=== PATIENT | male | born 1955 | race Caucasian/White ===

== ENCOUNTER 2017-10-26 16:02 | Inpatient (IN) | payer MEDICARE, MEDICAID ==
[2017-10-26 17:53] LABS: #Eosinphils 0.3 thou/uL (0.0-0.7); #Lymphocytes 0.9 thou/uL (1.20-3.40); #Monocytes 0.5 thou/uL (0.11-0.59); #Neutrophils 6.9 thou/uL (1.40-6.50); %Basophils 0.4 % (0.0-1.0); %Lymphocytes 10.2 % (21.0-51.0); %Monocytes 5.6 % (0.0-10.0); %Neutrophils 80.7 % (42.0-75.0); Hemoglobin 9.5 g/dL (14.0-18.0); Mean Corpuscular HGB CONC 32.1 g/dL (32.0-36.0); Mean Corpuscular Hemoglobin 32.4 pg (27.0-31.0); Mean Platelet Volume 7.3 fL (7.4-10.4); Platelet Count 216 thou/uL (130-400); RBC Distribution Width 16.1 % (11.5-14.5); Red Blood Cell (RBC) Count 2.93 mill/uL (4.70-6.10); White Blood Cell (WBC) Count 8.6 thou/uL (4.8-10.8)
[2017-10-26 18:17] LABS: ALT (SGPT) 9 U/L (8-55); AST (SGOT) 15 U/L (5-34); Albumin 2.9 g/dL (3.4-4.8); Alkaline Phosphatase 97 U/L (40-150); Anion Gap 11 mmol/L (10-20); BUN (Urea Nitrogen) 32 mg/dL (8.4-25.7); Bilirubin, Total 0.3 mg/dL (0.2-1.2); CRP (Inflammatory) 4.14 mg/dL (= or < 0.5); Calc. Creatinine Clearance 0 mL/min (70-130); Calcium 8.5 mg/dL (7.8-10.44); Carbon Dioxide 25 mmol/L (23-31); Chloride 105 mmol/L (98-107); Estimated GFR-MDRD 50; Globulin 4.3 g/dL (2.4-3.5); Glucose 92 mg/dL (80-115); Potassium 4.6 mmol/L (3.5-5.1); Protein, Total 7.2 g/dL (5.8-8.1); Sodium 136 mmol/L (136-145)
[2017-10-26 19:32] VITALS: BMI 19.0
[2017-10-26] MEDS ORDERED: Diphenoxylate HCl/Atropine Tablet PO PRN (21:41)
[2017-10-26] MEDS ORDERED: Albuterol Sulfate 2.5 mg/3 ml Neb NEB PRN (21:41)
[2017-10-27 05:32] LABS: Anion Gap 10 mmol/L (10-20); BUN (Urea Nitrogen) 28 mg/dL (8.4-25.7); Calc. Creatinine Clearance 36 mL/min (70-130); Calcium 8.3 mg/dL (7.8-10.44); Carbon Dioxide 25 mmol/L (23-31); Chloride 105 mmol/L (98-107); Estimated GFR-MDRD 52; Glucose 74 mg/dL (80-115); Potassium 4.3 mmol/L (3.5-5.1); Sodium 136 mmol/L (136-145)
[2017-10-27] MEDS: Cholestyramine/Aspartame 4 gm Packet PO SCH ×2 (05:34→16:41)
[2017-10-27 05:44] LABS: #Basophils 0.1 thou/uL (0.0-0.2); #Eosinphils 0.2 thou/uL (0.0-0.7); #Lymphocytes 1.2 thou/uL (1.20-3.40); #Monocytes 0.5 thou/uL (0.11-0.59); #Neutrophils 3.4 thou/uL (1.40-6.50); %Basophils 1.3 % (0.0-1.0); %Eosinophils 3.5 % (0.0-10.0); %Lymphocytes 22.4 % (21.0-51.0); %Monocytes 9.3 % (0.0-10.0); %Neutrophils 63.5 % (42.0-75.0); Hemoglobin 9.2 g/dL (14.0-18.0); Mean Corpuscular HGB CONC 30.6 g/dL (32.0-36.0); Mean Corpuscular Hemoglobin 31.4 pg (27.0-31.0); Mean Platelet Volume 9.3 fL (7.4-10.4); Platelet Count 127 thou/uL (130-400); RBC Distribution Width 16.6 % (11.5-14.5); Red Blood Cell (RBC) Count 2.94 mill/uL (4.70-6.10); White Blood Cell (WBC) Count 5.4 thou/uL (4.8-10.8)
[2017-10-27] MEDS ORDERED: Levothyroxine Sodium 125 MCG TAB PO SCH (06:00)
--- NOTE | 2017-10-27 06:32 | HP ---
CHIEF COMPLAINT: GI bleed. HISTORY OF PRESENT ILLNESS: The patient is a 62-year-old male with a history of significant debility secondary to Down syndrome. The patient also has chronic Crohn's disease. Patient has a history of histoplasmosis, which precludes him from taking the mean therapy. He has subsequently been relegated to mesalamine. The patient has relatively good control, but today he presented to the GI physician's office with some overt evidence of lower GI bleeding. There, he was noted to have significant hypotension. However, the patient is very small stature and there was concern that the blood pressure cuff that they were using was not adequate to fully capture his blood pressure. However, given the evidence of the GI bleeding, the patient was directly admitted to the hospital. REVIEW OF SYSTEMS: Unobtainable. PAST MEDICAL HISTORY: Known for the above mentioned Down syndrome. He also has the Crohn's disease. History of histoplasmosis. Apparent history of hypothyroidism. FAMILY HISTORY: Not known. SOCIAL HISTORY: The patient lives in a facility. ALLERGIES: BENZOYL PEROXIDE, SALICYLATE, NSAIDs, LACTOSE. MEDICATIONS: Mesalamine rectally b.i.d., albuterol p.r.n., Augmentin, betamethasone cream applied topically, vitamin D2 400 units b.i.d., cholestyramine 1 packet b.i.d., Proscar 5 mg every day, calcium 600 daily, multivitamin 1 p.o. daily, Flonase 2 sprays each nostril every day, Lasix 20 mg every day, aspirin 81 mg every day, and levothyroxine 125 mcg every day. PHYSICAL EXAMINATION: VITAL SIGNS: Temperature is 98.3, pulse 77, respirations 14, O2 sat 95% on room air, BP was 97/44. GENERAL APPEARANCE: The patient has obvious signs of Down syndrome. He is noncommunicative. He is resistant to being examined. HEENT: Pupils are reactive. He has no apparent oropharyngeal lesions. NECK: Supple and symmetric. HEART: Regular, without murmurs. CHEST: Clear bilaterally. ABDOMEN: Soft, nontender. EXTREMITIES: Warm and dry with some apparent muscle wasting of the lower extremities with several small superficial ulcerative type lesions on the toes. LABORATORY DATA: Initially able to be performed with white count of 8.6, hemoglobin 9.5, platelets 216. Sed rate 49. Sodium 136, potassium 4.6, chloride 105, CO2 25, BUN 32, creatinine 1.42. Liver enzymes are normal. C- reactive protein 4.14, albumin 2.9. IMPRESSION AND PLAN: 1. Gastrointestinal bleed. The patient appears to be relatively stable. At this point, his blood pressure is certainly in a tolerable range. He does require a pediatric cuff in order to attempt to get adequate numbers of his blood pressure. We will continue to monitor his hemoglobin. GI is consulted. We will continue with his mesalamine. 2. Hypotension. This appears to be spurious and related to the need for the pediatric cuff. 3. Renal: The patient appears to have some renal insufficiency. His baseline is not known. Therefore, it is unknown if this is acute or chronic, but I suspect it is chronic. 4. Down syndrome, stable. MTDD
[2017-10-27] MEDS ORDERED: Calcium Carbonate 600 MG TAB PO SCH (09:00)
[2017-10-27] MEDS ORDERED: Fluticasone Propionate Nasal Spray 16 gm Bottle NASAL SCH (09:00)
[2017-10-27] MEDS ORDERED: Finasteride 5 MG TAB PO SCH (09:00)
[2017-10-27] MEDS ORDERED: Mesalamine 1000 MG Suppository PR SCH (09:00)
[2017-10-27] MEDS ORDERED: Cholecalciferol (Vitamin D3) 400 UNITS TAB PO SCH (09:00)
[2017-10-27] MEDS ORDERED: Multivit, Therapeutic 1 TAB PO SCH (09:00)
--- NOTE | 2017-10-27 12:42 | PDOC.EVN ---
Event Note - Event Note Event Note: The patient's chart was reviewed for the purpose of utilization management. The patient's acuity of care does not meet the level of in-patient status. Therefore under the Medicare Provision Code 44, the patient's status has been changed to Observation.
[2017-10-27 16:54] VITALS: BP 96/57; TEMP 98.3
--- NOTE | 2017-10-28 02:23 | CON ---
DATE OF CONSULTATION: 10/27/2017 HISTORY OF PRESENT ILLNESS: Patient is a 62-year-old Down's syndrome gentleman who was seen in our o ffice yesterday for followup of his Crohn's disease. He reports he has been having 3-4 bowel movemen ts a day which are described as formed without diarrhea. He is taking Canasa suppositories b.i.d. wi thout difficulty. He is on cholestyramine powder twice a day. He had no vomiting. No onset rectal bleeding was known. His blood pressure was noted to be low at 60/40. However, they did not have a p ediatric cuff available in the office. It was felt that maybe he is bleeding and hypotensive from wagoner and was admitted to the hospital. In the hospital, he has had no further bleeding. He had 1 elier l movement today that was normal brown formed stool. He seems to be without complaints. PAST MEDICAL HISTORY: Significant for cardiac cushion defect, Crohn's disease, Down syndrome. PAST SURGICAL HISTORY: Includes colonoscopy, flexible sigmoidoscopy. ALLERGIES: Include BENZOYL PEROXIDE, IBUPROFEN, and NSAIDS. SOCIAL HISTORY: He is taken care of by caregiver. Does not smoke or drink. CURRENT MEDICATIONS: Include Peptamen 1 can p.o. t.i.d., levothyroxine 120 mcg 1 p.o. daily, cholest yramine 4 grams 1 p.o. t.i.d., vitamin D 400 units twice daily, finasteride 5 mg p.o. daily, Canasa s uppositories 1000 mg b.i.d., topically b.i.d., calcium supplement 600 mg p.o. daily, multivitam in 1 p.o. daily, fluticasone 2 sprays each naris daily, Lasix 20 mg p.o. daily and aspirin 81 mg p.o. daily. FAMILY HISTORY: Negative for any GI or liver disease. REVIEW OF SYSTEMS: Unobtainable. PHYSICAL EXAMINATION: GENERAL: Shows Down syndrome gentleman in no acute distress. VITAL SIGNS: Temperature 98.0, pulse 77, respiratory rate 16, blood pressure 98/65. HEENT: Unremarkable. NECK: Supple. CHEST: Clear. CARDIOVASCULAR: Regular rate and rhythm. ABDOMEN: Soft and nontender without organomegaly or masses. Bowel sounds are present and normoactiv e. LABORATORY DATA: Shows a white blood cell count of 8.6, hemoglobin 9.5. Repeat today showed hemoglo bin of 9.2. C-reactive protein of 4.14, albumin 2.9. ASSESSMENT: 1. Hematochezia - I suspect this is anal outlet bleeding since he has not had any further bleeding a nd had no blood here formed stool, has not had increase in his diarrhea. 2. History of Crohn's proctitis - seems to be in remission on Canasa suppositories. 3. Anemia -- multifactorial. RECOMMENDATIONS: 1. Continue Canasa suppositories. 2. Since the patient is having brown stool, I do not think any further intervention needs to be perf ormed at this time. 3. Stable for discharge from GI standpoint.
--- NOTE | 2017-10-28 08:09 | DIS ---
DATE OF ADMISSION: 10/26/2017 DATE OF DISCHARGE: 10/27/2017 DISCHARGE DIAGNOSES: 1. Lower gastrointestinal bleed. 2. Crohn's disease. 3. Down syndrome. HISTORY OF PRESENT ILLNESS: This patient is a 62-year-old male with a history of fairly debilitating Down syndrome. The patient has a history of Crohn's disease, but because of history of histoplasmos is has not been a candidate for immune therapy. He has primarily been on mesalamine suppositories. The patient [facility] where he had a bloody bowel movement. Th ey attempted to get some vital signs on him, but the patient is quite small, they did not have an dez ropriate pediatric size cuff in order to get an accurate blood pressure, but the pressures they did r eceive 60/30. The patient was subsequently directly admitted to the hospital. Initially, the patien t did have a repeat blood pressure obtained with an appropriate size cuff and his systolic was in the 90s. Labs were obtained, which did reveal a hemoglobin of 9.5 with an MCV of 101. HOSPITAL COURSE: The patient was monitored overnight. Repeat lab showed a hemoglobin of 9.2 without significant change. He did have subsequent bowel movements which were not bloody in character. GI was consulted and felt that the patient was stable and not having significant Crohn's exacerbation of bleeding and was stable for discharge. PHYSICAL EXAMINATION: VITAL SIGNS: Temperature was 98.3, pulse 86, respirations 18, O2 sat is 93%, and blood pressure is 9 6/57. GENERAL APPEARANCE: The patient is a very small male with typical Down syndrome characteristics. He is generally noncommunicative. HERAT: Regular rate and rhythm. LUNGS: Clear. ABDOMEN: Soft and nondistended and appeared to be nontender. DISPOSITION: The patient is discharged back to his clean living environment where he has been living . He is to continue his activity as tolerated, although it appears he is primarily bed bound. He is to continue with his usual regular diet. He will continue with his usual medications. DISCHARGE MEDICATIONS: Include Lasix 20 mg q. day, albuterol as needed, Proscar 5 mg q. day, Flonase 2 sprays per nostril q. day, aspirin 81 mg q. day, multivitamin 1 p.o. q. day, vitamin D 400 units b .i.d., and levothyroxine 125 mcg p.o. q. day, calcium 600 mg q. day, cholestyramine packet, Augmentin , betamethasone cream, Lomotil as needed, and mesalamine 1000 mg rectal b.i.d. FOLLOWUP: He is to follow up with his primary care provider in living environment and with the GI cl in as scheduled.
== END 2017-10-27 18:31 | disposition home or self-care (01) | DRG 387 ==
LOC: T4-B 16:02
PROVIDERS: ADMIT Internal Medicine; ATTEND Internal Medicine
DX: K50.918 Crohn's disease, unspecified, with other complication (principal); Q90.9 Down syndrome, unspecified; D64.9 Anemia, unspecified; E03.9 Hypothyroidism, unspecified; L97.509 Non-pressure chronic ulcer of other part of unspecified foot with unspecified severity; Z86.19 Personal history of other infectious and parasitic diseases; Z87.74 Personal history of (corrected) congenital malformations of heart and circulatory system
CPT/HCPCS: 36415; 80048; 80053; 83630; 85025; 85652; 86140; 87324; 87449